=== PATIENT | male | born 1950 | race Caucasian/White ===

== ENCOUNTER 2016-08-03 15:44 | Inpatient (IN) | payer OTHER ==
[~2016-08-03] VITALS: Ht 162.6 cm; Wt 54.4 kg
[~2016-08-03 15:44] MED LIST: AMLODIPINE BESY10 M1 PO; BAYER ASPIRIN R81 MG PO; CLEOCIN HCL300 MG PO; CLINDAMYCIN HC300 MG PO; COL100 PO; GLIPIZIDE10 MG PO; LAC PO; LANSOPRAZOLE30 M2 PO; LEVAQUIN750 MG PO; LOPRESSOR100 MG PO; LORATADINE10 MG PO; LOSARTAN POTASS50 M1 PO; METFORMIN HCL1000 MG PO; NATURAL IRON65 MG PO; NORCO1 TA2 PO; PRILOSEC20 MG PO; PRIMIDONE50 MG PO; TAMSULOSIN HYD0.4 M1; ZOCOR20 MG PO
[2016-08-03] MEDS ORDERED: PANTOPRAZOLE SO40 M1 PO (17:01)
[2016-08-03] MEDS ORDERED: [UNRECOGNIZED DRUG - CODE] NS (17:01)
[2016-08-03 17:03] LABS: BASOPHIL % 0.2 % (0-2); CALCIUM 9.9 mg/dL (8.5-10.1); CARBON DIOXIDE 24.8 mmol/L (21-32); CREATININE SERUM 1.6 mg/dL (0.7-1.3); PLATELET COUNT 188 x10^3mcL (130-400); POTASSIUM SERUM 4.3 mmol/L (3.5-5.1)
[2016-08-03 17:04] LABS: RED CELL DISTRIBUTION WIDTH 14.6 % (11.5-14.5)
[2016-08-03 17:09] LABS: ALBUMIN 4.2 g/dL (3.4-5.0); BILIRUBIN TOTAL 0.3 mg/dL (0.20-1.00); TOTAL PROTEIN, SERUM 7.4 g/dL (6.4-8.2)
[2016-08-03 20:11] LABS: T3 TOTAL 0.94 ng/mL
[2016-08-03 20:14] LABS: FREE T4 0.94 ng/dL (0.76-1.46); T4(THYROXINE) 6.1 ug/dL (4.7-13.3)
[2016-08-03 20:23] LABS: MAGNESIUM 1.9 mg/dL (1.8-2.4); PHOSPHOROUS 5.5 mg/dL (2.5-4.9)
[2016-08-03 20:57] VITALS: BP 182/89
[2016-08-03 21:09] VITALS: Ht 162.6 cm; Wt 54.4 kg
[2016-08-03 21:24] VITALS: BP 179/86
== END 2016-08-03 23:55 | disposition expired | DRG 871 ==
LOC: ED 15:44 → DU 19:03
PROVIDERS: Emergency Medicine; ADMIT Family Medicine
PROC: 5A09357 Assistance with Respiratory Ventilation, Less than 24 Consecutive Hours, Continuous Positive Airway Pressure (ICD-10-PCS; principal; 2016-08-03)
DX: A41.9 Sepsis, unspecified organism (principal); J69.0 Pneumonitis due to inhalation of food and vomit; J96.01 Acute respiratory failure with hypoxia; J96.02 Acute respiratory failure with hypercapnia; G93.41 Metabolic encephalopathy; I50.43 Acute on chronic combined systolic (congestive) and diastolic (congestive) heart failure; N17.0 Acute kidney failure with tubular necrosis; R65.20 Severe sepsis without septic shock; Q99.8 Other specified chromosome abnormalities; E11.65 Type 2 diabetes mellitus with hyperglycemia; I45.10 Unspecified right bundle-branch block; I10 Essential (primary) hypertension; E03.9 Hypothyroidism, unspecified; D64.9 Anemia, unspecified; E83.39 Other disorders of phosphorus metabolism; Z79.4 Long term (current) use of insulin; Z51.5 Encounter for palliative care; Z66 Do not resuscitate
CPT/HCPCS: 36600; 83880; 84439; J1815; J1956; J2270; J2543; J3370; J3490; J7030